=== PATIENT | female | born 2005 | race Caucasian/White ===

== ENCOUNTER 2024-10-01 18:27 | Emergency (ER) | payer OTHER, MEDICAID ==
[2024-10-01 19:06] VITALS: O2SAT 100
--- NOTE | 2024-10-01 19:48 | ERPHSYRPT ---
- History of Present Illness Time Seen by Provider: 10/01/24 19:46 Source: patient Exam Limitations: no limitations Patient Subjective Stated Complaint: Cough Triage Nursing Assessment: Patient ambulated back to ED and transferred self to bed. Patient A+O X 3. Patient's skin pink, warm and dry. Patient complains of cough for 2 weeks, but tested positive for Covid yesterday. Patient complains of productive cough with thick green sputum, bodyaches and headaches. Lungs clear a/p minor. Patient states she is 17 weeks . Physician History: The patient is a female who presents with congestion and a positive COVID-19 test. Symptoms began on September 20 with congestion, and she initially tested negative for COVID-19 on Wednesday at a [facility] facility. She experienced a fever of 102F on Wednesday but has not had any further fevers since then. She has a lack of appetite and vomits when attempting to eat or drink, although she was able to keep down [employer] this morning. She has been cautious with fluid int hollie due to fear of vomiting but managed to drink a little water. She is 17 weeks with her first . She experiences belly pain when coughing and has felt the baby move slightly. She has slight shortness of breath and chest pain associated with coughing. No swelling in her legs. She is currently taking Macrobid for a urinary tract infection (UTI) since Wednesday, with a prescribed duration of seven days. She has also taken Tylenol. Her cough is productive with mucus that is a color between dark and light green. Timing/Duration: week(s) (2) Cough Quality/Degree: moderate, productive cough Possible Cause: occasional episodes Modifying Factors: Improves With: activity, coughing, deep breath, exertion Associated Symptoms: fever, chills, cough, nasal congestion, nasal drainage, shortness of breath, No chest pain/soreness, No earache, No facial pain, No wheezing Allergies/Adverse Reactions: No Known Drug Allergies Allergy (Unverified 10/01/24 18:55) Hx Tetanus, Diphtheria Vaccination/Date Given: No Hx Influenza Vaccination/Date Given: No Hx Pneumococcal Vaccination/Date Given: No Immunizations Up to Date: Yes Travel Risk - International Travel Have you traveled outside of the country in past 3 weeks: No - Emerging Infectious Disease Are you exhibiting symptoms associated with any current EIDs: Yes Symptoms: Cough: New Onset, Headaches/Body Aches/ - Review of Systems All Other Systems: Reviewed and Negative - Past Medical History Pertinent Past Medical History: No Neurological History: No Pertinent History ENT History: No Pertinent History Cardiac History: No Pertinent History Respiratory History: No Pertinent History Endocrine Medical History: No Pertinent History Musculoskeletal History: No Pertinent History GI Medical History: No Pertinent History History: No Pertinent History Psycho-Social History: No Pertinent History Female Reproductive Disorders: No Pertinent History - Past Surgical History Past Surgical History: No Neuro Surgical History: No Pertinent History Cardiac: No Pertinent History Respiratory: No Pertinent History Gastrointestinal: No Pertinent History Genitourinary: No Pertinent History Musculoskeletal: No Pertinent History Female Surgical History: No Pertinent History - Female History Hx Last Menstrual Period: May Hx Now: Yes Gestational Age: 17 weeks - Social History Smoking Status: Never smoker Exposure to second hand smoke: No Drug Use: none - Social Determinants of Health Will the patient participate in the screening: Yes Do you worry about a steady place to live?: No Do you have any problems with any of the following?: No known problems In the past 12 months,have you had to go without utilities?: No Transportation Issues: No Has anyone in your support network made you feel unsafe?: No Have you or anyone in your house had to go without enough: No - Nursing Vital Signs Nursing Vital Signs: Initial Vital Signs Temperature 98.4 F 10/01/24 18:55 Respiratory Rate 18 10/01/24 18:55 O2 Sat by Pulse Oximetry 100 10/01/24 18:55 Pain Scale Pain Intensity 0 - Physical Exam General Appearance: no apparent distress, obese Ears, Nose, Throat Exam: normal ENT inspection, pharyngeal erythema Neck Exam: normal inspection, supple, full range of motion, lymphadenopathy Respiratory Exam: normal breath sounds, lungs clear, airway intact, No respiratory distress Cardiovascular Exam: regular rate/rhythm, normal heart sounds, capillary refill <2 sec, No edema Skin Exam: normal color, warm, dry, No rash SpO2 Interpretation: normal SpO2: 100 O2 Delivery: Room Air - Course Nursing assessment & vital signs reviewed: Yes Ordered Tests: Active Orders 24 hr Category Date Time Status IV Insertion STAT Care 10/01/24 19:49 Active CBC W DIFF Stat Lab 10/01/24 20:06 Completed CMP Stat Lab 10/01/24 20:06 Completed PROCALCITONIN Stat Lab 10/01/24 20:06 Completed UA W/RFX UR CULTURE Stat Lab 10/01/24 20:02 Completed Medication Summary Generic Name Dose Route Start Last Admin Trade Name Zain PRN Reason Stop Dose Admin Prednisone 20 mg 10/02/24 20:55 Prednisone 20 Mg Tablet PO 10/02/24 20:56 STAT ONE Discontinued Medications Generic Name Dose Route Start Last Admin Trade Name Zain PRN Reason Stop Dose Admin Sodium Chloride 1,000 mls @ 999 mls/hr 10/01/24 19:48 10/01/24 20:01 Sodium Chloride 0.9% 1000 Ml IV 10/01/24 20:48 999 mls/hr .Q1H1M STA Administration Sodium Chloride Confirm 10/01/24 20:00 Sodium Chloride 0.9% 1000 Ml Administered 10/01/24 20:01 Dose 1,000 mls @ ud .ROUTE .STK-MED ONE Lab/Rad Data: Laboratory Result Diagrams 10/01/24 20:06 10/01/24 20:06 Laboratory Results 10/01/24 10/01/24 10/01/24 Range/Units 20:06 20:06 20:06 WBC 7.1 (3.98-10.04) x10^3/uL RBC 4.23 (3.93-5.22) x10^6/uL Hgb 11.4 (11.2-15.7) g/dL Hct 34.3 (34.1-44.9) % MCV 81.1 (79.4-94.8) fL MCH 27.0 (25.6-32.2) pg MCHC 33.2 (32.2-35.5) g/dL RDW 14.5 H (11.7-14.4) % Plt Count 231 (182-369) x10^3/uL MPV 9.6 (9.4-12.3) fL Gran % 61.6 (34.0-71.1) % Immature Gran % (Auto) 0.3 (0.001-0.429) % Nucleat RBC Rel Count 0.0 (0.00-0.2) % Eos # (Auto) 0.17 (0.04-0.36) x10^3/uL Immature Gran # (Auto) 0.02 (0.001-0.031) x10^3u/L Absolute Lymphs (auto) 2.03 (1.18-3.74) x10^3/uL Absolute Monos (auto) 0.49 (0.24-0.86) x10^3/uL Absolute Nucleated RBC 0.00 (0.00-0.012) x10^3u/L Lymphocytes % 28.7 (19.3-51.7) % Monocytes % 6.9 (4.7-12.5) % Eosinophils % 2.4 (0.7-5.8) % Basophils % 0.1 (0.1-1.2) % Absolute Granulocytes 4.36 (1.56-6.13) x10^3/uL Basophils # 0.01 (0.01-0.08) x10^3/uL Sodium 138 (135-145) mmol/L Potassium 3.3 L (3.5-5.1) mmol/L Chloride 106 (98-107) mmol/L Carbon Dioxide 25 (22-30) mmol/L Anion Gap 10.7 (5-15) MEQ/L BUN 6 L (7-17) mg/dL Creatinine 0.59 (0.52-1.04) mg/dL Estimated GFR 132.2 ML/MIN Glucose 91 (74-106) mg/dL Calcium 9.2 (8.4-10.2) mg/dL Total Bilirubin 0.20 (0.2-1.3) mg/dL AST 22 (14-36) U/L ALT 23 (0-35) U/L Alkaline Phosphatase 74 (38-126) U/L Serum Total Protein 7.6 (6.3-8.2) g/dL Albumin 4.0 (3.5-5.0) g/dL Procalcitonin 0.049 (0.030-0.080) ng/mL Urine Color (Yellow) Urine Appearance (Clear) Urine pH (4.6-8.0) Ur Specific [place] (1.005-1.030) Urine Protein (Negative) Urine Glucose (UA) (Negative) mg/dL Urine Ketones (Negative) Urine Blood (Negative) Urine Nitrite (Negative) Urine Bilirubin (Negative) Urine Urobilinogen (0.2) mg/dL Ur Leukocyte Esterase (Negative) U Hyaline Cast (Auto) (0-2) /LPF Urine Microscopic RBC (0-5) /HPF Urine Microscopic WBC (0-5) /HPF Ur Epithelial Cells (None Seen) /HPF Urine Bacteria (None Seen) /HPF Urine Culture Reflexed (NO) 10/01/24 Range/Units 20:02 WBC (3.98-10.04) x10^3/uL RBC (3.93-5.22) x10^6/uL Hgb (11.2-15.7) g/dL Hct (34.1-44.9) % MCV (79.4-94.8) fL MCH (25.6-32.2) pg MCHC (32.2-35.5) g/dL RDW (11.7-14.4) % Plt Count (182-369) x10^3/uL MPV (9.4-12.3) fL Gran % (34.0-71.1) % Immature Gran % (Auto) (0.001-0.429) % Nucleat RBC Rel Count (0.00-0.2) % Eos # (Auto) (0.04-0.36) x10^3/uL Immature Gran # (Auto) (0.001-0.031) x10^3u/L Absolute Lymphs (auto) (1.18-3.74) x10^3/uL Absolute Monos (auto) (0.24-0.86) x10^3/uL Absolute Nucleated RBC (0.00-0.012) x10^3u/L Lymphocytes % (19.3-51.7) % Monocytes % (4.7-12.5) % Eosinophils % (0.7-5.8) % Basophils % (0.1-1.2) % Absolute Granulocytes (1.56-6.13) x10^3/uL Basophils # (0.01-0.08) x10^3/uL Sodium (135-145) mmol/L Potassium (3.5-5.1) mmol/L Chloride (98-107) mmol/L Carbon Dioxide (22-30) mmol/L Anion Gap (5-15) MEQ/L BUN (7-17) mg/dL Creatinine (0.52-1.04) mg/dL Estimated GFR ML/MIN Glucose (74-106) mg/dL Calcium (8.4-10.2) mg/dL Total Bilirubin (0.2-1.3) mg/dL AST (14-36) U/L ALT (0-35) U/L Alkaline Phosphatase (38-126) U/L Serum Total Protein (6.3-8.2) g/dL Albumin (3.5-5.0) g/dL Procalcitonin (0.030-0.080) ng/mL Urine Color Dark Yellow A (Yellow) Urine Appearance Cloudy A (Clear) Urine pH 7.0 (4.6-8.0) Ur Specific [place] 1.025 (1.005-1.030) Urine Protein Negative (Negative) Urine Glucose (UA) Negative (Negative) mg/dL Urine Ketones Negative (Negative) Urine Blood Negative (Negative) Urine Nitrite Negative (Negative) Urine Bilirubin Negative (Negative) Urine Urobilinogen 1.0 A (0.2) mg/dL Ur Leukocyte Esterase Trace A (Negative) U Hyaline Cast (Auto) NONE SEEN (0-2) /LPF Urine Microscopic RBC 3-5 (0-5) /HPF Urine Microscopic WBC 3-5 (0-5) /HPF Ur Epithelial Cells Few (None Seen) /HPF Urine Bacteria Few A (None Seen) /HPF Urine Culture Reflexed NO (NO) - Progress Progress: improved Air Movement: good Progress Note: 18-year-old 1 para 0 at 17 weeks gestation presents with upper respiratory infection with a positive COVID test at home. Patient is also been dealing with a urinary tract infection for which she is currently taking Macrobid. She denies any current urinary symptoms. She has been unable to keep much fluids or solids down over the last 3 days. She has a productive cough and some shortness of breath. CBC and CMP are within normal limits. Chest x-ray deferred due to and low concern for consolidation based off of physical exam findings. I discussed the case with her retort furnace helper Dr. Varner was okay with the use of prednisone for symptomatic treatment. Defer use of Paxlovid at this time. No need for antibiotic treatment as this is viral in nature. Encouraged maintain adequate hydration and use Tylenol for myalgias. Follow up next scheduled appointment. Blood Culture(s) Obtained: No Antibiotics given: No Discussed with : Mi Counseled pt/family regarding: lab results, diagnosis, need for follow-up Medical Desision Making - Diagnostic Testing Diagnostic test were ordered, analyzed, and reviewed by me: Yes Radiological Interpretation: Interpreted by me - Risk of complications The pt has a mod risk of morbidity or mortality based on: Need for prescription drug management - Departure Departure Disposition: Home Clinical Impression: COVID-19 affecting in second trimester Condition: Good Critical Care Time: No Referrals: RAFI REEDER, [employer] MACHINE OPERATOR [Primary Care Provider] - Follow up/PCP as directed Instructions: COVID-19 and ED Prescriptions: predniSONE [Prednisone] 20 mg PO BID 5 Days #10 tablet
[2024-10-01] MEDS ORDERED: Sodium Chloride 0.9% 1000 ML 1,000 ML ONE (20:00)
[2024-10-01] MEDS: Sodium Chloride 0.9% 1000 ML 1,000 ML IV STA (20:01)
[2024-10-01 20:09] VITALS: TEMP 96.6
[2024-10-01 20:09] LABS: Absolute Neutrophil Ct (ANC) 4.36 x10^3/uL (1.56-6.13); BASOPHIL % 0.1 % (0.1-1.2); Basophil (Absolute #) 0.01 x10^3/uL (0.01-0.08); Eosinophil % 2.4 % (0.7-5.8); Eosinophil (Absolute #) 0.17 x10^3/uL (0.04-0.36); Hematocrit 34.3 % (34.1-44.9); Hemoglobin 11.4 g/dL (11.2-15.7); IMMATURE GRAN # 0.02 x10^3u/L (0.001-0.031); IMMATURE GRAN % 0.3 % (0.001-0.429); Lymphocyte (Absolute #) 2.03 x10^3/uL (1.18-3.74); Lymphocytes % 28.7 % (19.3-51.7); Mean Cell Volume 81.1 fL (79.4-94.8); Mean Corpuscular Hgb Concent. 33.2 g/dL (32.2-35.5); Mean Platelet Volume 9.6 fL (9.4-12.3); Monocyte (Absolute #) 0.49 x10^3/uL (0.24-0.86); Monocytes % 6.9 % (4.7-12.5); Neutrophil % 61.6 % (34.0-71.1); Platelet Count 231 x10^3/uL (182-369); Red Blood Count 4.23 x10^6/uL (3.93-5.22); Red Cell Distribution Width 14.5 % (11.7-14.4); White Blood Count 7.1 x10^3/uL (3.98-10.04)
[2024-10-01 20:27] LABS: ANION GAP 10.7 MEQ/L (5-15); BILIRUBIN,TOTAL 0.2 mg/dL (0.2-1.3); Calcium 9.2 mg/dL (8.4-10.2); Creatinine 1 0.59 mg/dL (0.52-1.04); EST GLOMERULAR FILTRATION RATE 132.2 ML/MIN; Potassium 3.3 mmol/L (3.5-5.1); Total Protein 7.6 g/dL (6.3-8.2)
[2024-10-01 20:43] LABS: Appearance Cloudy (Clear); Bacteria Few /HPF (None Seen); Bilirubin Negative (Negative); Blood Negative (Negative); Epithelial Cells Few /HPF (None Seen); Glucose, Urine Negative (Negative); Hyaline Casts NONE SEEN /LPF (0-2); Ketones Negative (Negative); Leukocyte Esterase Trace (Negative); Nitrite Negative (Negative); Protein,Urine Dip Negative (Negative); Specific Gravity 1.025 (1.005-1.030)
[2024-10-01] MEDS ORDERED: DELTASONE 20 MG ONE (21:12)
[2024-10-01] MEDS: DELTASONE 20 MG PO ONE (21:13)
[2024-10-01 21:14] VITALS: BP 103/51; PULSE 85; RESP 18
== END 2024-10-01 21:23 | disposition home or self-care (01) ==
LOC: ED 18:27
DX: U07.1 COVID-19 (principal); R05.9 Cough, unspecified; Z3A.17 17 weeks gestation of pregnancy; O98.512 Other viral diseases complicating pregnancy, second trimester
CPT/HCPCS: 36415; 80053; 81001; 84145; 85025; 99284; A9270-GY

== ENCOUNTER 2025-01-29 16:37 | Observation (INO) | payer OTHER ==
[2025-01-29 17:30] VITALS: TEMP 98.8
[2025-01-29 17:37] LABS: Hematocrit 37.2 % (34.1-44.9); Hemoglobin 12.1 g/dL (11.2-15.7); Mean Cell Volume 81.9 fL (79.4-94.8); Mean Corpuscular Hemoglobin 26.7 pg (25.6-32.2); Mean Corpuscular Hgb Concent. 32.5 g/dL (32.2-35.5); Mean Platelet Volume 10.1 fL (9.4-12.3); Platelet Count 236 x10^3/uL (182-369); Red Blood Count 4.54 x10^6/uL (3.93-5.22); Red Cell Distribution Width 13.2 % (11.7-14.4); White Blood Count 7.9 x10^3/uL (3.98-10.04)
[2025-01-29 17:53] LABS: ALBUMIN 3.8 g/dL (3.5-5.0); ANION GAP 12.5 MEQ/L (5-15); BILIRUBIN,TOTAL 0.3 mg/dL (0.2-1.3); Calcium 8.7 mg/dL (8.4-10.2); Creatinine 1 0.72 mg/dL (0.52-1.04); EST GLOMERULAR FILTRATION RATE 121.9 ML/MIN; Potassium 3.8 mmol/L (3.5-5.1)
[2025-01-29 18:36] LABS: Appearance Clear (Clear); Bacteria None Seen /HPF (None Seen); Bilirubin Negative (Negative); Blood Negative (Negative); Epithelial Cells Rare /HPF (None Seen); Glucose, Urine Negative (Negative); Hyaline Casts NONE SEEN /LPF (0-2); Ketones Trace (Negative); Leukocyte Esterase Small (Negative); Nitrite Negative (Negative); Ph 6.5 (4.6-8.0); Protein,Urine Dip Trace (Negative); RBC 0-2 /HPF (0-5)
[2025-01-29 18:44] LABS: Creatinine, Urine Random 145.4 mg/dl; Protein Creatinine Ratio, Ran. 0.06 mg/mg (0.0-0.15)
[2025-01-29 18:47] LABS: Amphetamine,Urine NEGATIVE (NEGATIVE); Barbiturate,Urine NEGATIVE (NEGATIVE); Benzodiazepine,Urine NEGATIVE (NEGATIVE); Cocaine,Urine NEGATIVE (NEGATIVE); Methadone,Urine NEGATIVE (NEGATIVE); Opiate,Urine NEGATIVE (NEGATIVE); PCP,Urine NEGATIVE (NEGATIVE); THC,Urine NEGATIVE (NEGATIVE)
[2025-01-29 19:26] VITALS: BP 134/77; PULSE 75; RESP 18; O2SAT 100
== END 2025-01-29 19:25 | disposition home or self-care (01) ==
LOC: OB 16:37
PROVIDERS: ADMIT Obstetrics & Gynecology; ATTEND Obstetrics & Gynecology
DX: Z34.03 Encounter for supervision of normal first pregnancy, third trimester (principal); Z3A.34 34 weeks gestation of pregnancy
CPT/HCPCS: 36415; 80053; 80307; 81001; 82570; 83615; 84156; 84550; 85027; 87086; G0378; G0379

== ENCOUNTER 2025-02-07 15:13 | Observation (INO) | payer OTHER ==
[2025-02-07 15:40] LABS: Absolute Neutrophil Ct (ANC) 5.55 x10^3/uL (1.56-6.13); BASOPHIL % 0.3 % (0.1-1.2); Basophil (Absolute #) 0.02 x10^3/uL (0.01-0.08); Eosinophil % 0.3 % (0.7-5.8); Eosinophil (Absolute #) 0.02 x10^3/uL (0.04-0.36); Hematocrit 33.2 % (34.1-44.9); Hemoglobin 10.9 g/dL (11.2-15.7); IMMATURE GRAN # 0.03 x10^3u/L (0.001-0.031); IMMATURE GRAN % 0.4 % (0.001-0.429); Lymphocyte (Absolute #) 1.52 x10^3/uL (1.18-3.74); Mean Cell Volume 81.8 fL (79.4-94.8); Mean Corpuscular Hemoglobin 26.8 pg (25.6-32.2); Mean Corpuscular Hgb Concent. 32.8 g/dL (32.2-35.5); Mean Platelet Volume 10.2 fL (9.4-12.3); Monocyte (Absolute #) 0.46 x10^3/uL (0.24-0.86); Monocytes % 6.1 % (4.7-12.5); Neutrophil % 72.9 % (34.0-71.1); Platelet Count 218 x10^3/uL (182-369); Red Blood Count 4.06 x10^6/uL (3.93-5.22); White Blood Count 7.6 x10^3/uL (3.98-10.04)
[2025-02-07 15:54] LABS: ALBUMIN 3.4 g/dL (3.5-5.0); ANION GAP 11.6 MEQ/L (5-15); BILIRUBIN,TOTAL 0.3 mg/dL (0.2-1.3); Calcium 8.5 mg/dL (8.4-10.2); Creatinine 1 0.84 mg/dL (0.52-1.04); EST GLOMERULAR FILTRATION RATE 101.3 ML/MIN; Total Protein 6.3 g/dL (6.3-8.2); Uric Acid 8.3 mg/dL (2.6-6.0)
[2025-02-07 16:32] LABS: Creatinine, Urine Random 222.4 mg/dl; Protein Creatinine Ratio, Ran. 0.04 mg/mg (0.0-0.15)
[2025-02-07 17:25] VITALS: PULSE 81; RESP 16; TEMP 97.7; O2SAT 99
[2025-02-07 17:30] VITALS: BP 138/82
== END 2025-02-07 17:20 | disposition home or self-care (01) ==
LOC: OB.NST 15:13 → OB 15:14 → UNDOADMOB 17:16 → OB 17:16 → UNDODISOB 17:20
PROVIDERS: ADMIT Obstetrics & Gynecology; ATTEND Obstetrics & Gynecology
DX: Z34.03 Encounter for supervision of normal first pregnancy, third trimester (principal); Z3A.35 35 weeks gestation of pregnancy
CPT/HCPCS: 36415; 59025; 80053; 82570; 83615; 84156; 84550; 85025; 99213; G0378; G0379

== ENCOUNTER 2025-02-20 07:09 | Inpatient (IN) | payer OTHER ==
[2025-02-20] MEDS ORDERED: Zofran 4 MG/2 ML VIAL IV PRN (07:48)
[2025-02-20] MEDS ORDERED: STADOL 2 MG IV PRN ×2 (07:48→21:56)
[2025-02-20] MEDS ORDERED: TYLENOL EXTRA STRENGTH 500 MG PO PRN (07:48)
[2025-02-20] MEDS ORDERED: PITOCIN 30 UNITS/ LR 500 ML 30 UNITS/500 ML PLAST..BAG IV SCH (08:00)
[2025-02-20 08:54] LABS: Absolute Neutrophil Ct (ANC) 5.37 x10^3/uL (1.56-6.13); BASOPHIL % 0.3 % (0.1-1.2); Basophil (Absolute #) 0.02 x10^3/uL (0.01-0.08); Eosinophil % 0.3 % (0.7-5.8); Eosinophil (Absolute #) 0.02 x10^3/uL (0.04-0.36); Hematocrit 33.9 % (34.1-44.9); Hemoglobin 11.5 g/dL (11.2-15.7); IMMATURE GRAN # 0.03 x10^3u/L (0.001-0.031); IMMATURE GRAN % 0.4 % (0.001-0.429); Lymphocytes % 21.4 % (19.3-51.7); Mean Cell Volume 79.6 fL (79.4-94.8); Mean Corpuscular Hgb Concent. 33.9 g/dL (32.2-35.5); Mean Platelet Volume 10.8 fL (9.4-12.3); Monocyte (Absolute #) 0.44 x10^3/uL (0.24-0.86); Monocytes % 5.9 % (4.7-12.5); Neutrophil % 71.7 % (34.0-71.1); Platelet Count 204 x10^3/uL (182-369); Red Blood Count 4.26 x10^6/uL (3.93-5.22); Red Cell Distribution Width 13.3 % (11.7-14.4); White Blood Count 7.5 x10^3/uL (3.98-10.04)
[2025-02-20 09:07] LABS: ALBUMIN 3.3 g/dL (3.5-5.0); ANION GAP 15.1 MEQ/L (5-15); BILIRUBIN,TOTAL 0.3 mg/dL (0.2-1.3); Calcium 8.7 mg/dL (8.4-10.2); Creatinine 1 0.79 mg/dL (0.52-1.04); EST GLOMERULAR FILTRATION RATE 109.1 ML/MIN; Potassium 3.6 mmol/L (3.5-5.1); Total Protein 6.1 g/dL (6.3-8.2); Uric Acid 9.4 mg/dL (2.6-6.0)
[2025-02-20 09:18] LABS: Creatinine, Urine Random 284.2 mg/dl; Protein Creatinine Ratio, Ran. 0.46 mg/mg (0.0-0.15)
[2025-02-20 09:27] LABS: Amphetamine,Urine NEGATIVE (NEGATIVE); Barbiturate,Urine NEGATIVE (NEGATIVE); Benzodiazepine,Urine NEGATIVE (NEGATIVE); Cocaine,Urine NEGATIVE (NEGATIVE); Methadone,Urine NEGATIVE (NEGATIVE); Opiate,Urine NEGATIVE (NEGATIVE); PCP,Urine NEGATIVE (NEGATIVE); THC,Urine NEGATIVE (NEGATIVE)
[2025-02-20 09:38] LABS: ABO TYPING O; Antibody Screen NEGATIVE (NEGATIVE); RH TYPING POSITIVE
[2025-02-21] MEDS: CYTOTEC PO ONE (05:25)
[2025-02-21 08:02] LABS: RPR Non Reactive (Non Reactive)
[2025-02-21] MEDS: PITOCIN 30 UNITS/ LR 500 ML 30 UNITS/500 ML PLAST..BAG IV SCH (08:18)
[2025-02-21] MEDS: Lactated Ringers 1,000 ML IV SCH (08:18)
[2025-02-21] MEDS: Nubain 10 MG/ML IV PRN (08:43)
[2025-02-21] MEDS ORDERED: Dermoplast Spray TP PRN (12:00)
[2025-02-21] MEDS ORDERED: TUCKS TP PRN (12:00)
[2025-02-21] MEDS ORDERED: Anucort-HC SUPPOSITORY PR PRN (12:00)
[2025-02-21] MEDS ORDERED: CORTISONE 1% CREAM TP PRN (12:00)
[2025-02-21] MEDS ORDERED: MOTRIN 400 MG PO PRN (12:00)
[2025-02-21] MEDS ORDERED: Ambien 10 MG PO PRN (12:00)
[2025-02-21] MEDS ORDERED: Mylicon 80MG PO PRN (12:00)
[2025-02-21] MEDS ORDERED: Dulcolax 10 MG SUPP PR PRN (12:00)
[2025-02-21] MEDS ORDERED: LANSINOH 40 GM TOP PRN (12:00)
[2025-02-21] MEDS ORDERED: Ephedrine Sulfate 50 MG/ML IV PRN (12:14)
[2025-02-21] MEDS ORDERED: Lactated Ringers 1,000 ML IV ONE ×2 (12:14→15:00)
[2025-02-21] MEDS: FENTANYL 2 MCG-BUPIV 0.125%-NS 250 ML Epidur 250 ML EPIDURAL SCH (12:30)
[2025-02-21] MEDS ORDERED: Sodium Chloride 0.9% 1000 ML 1,000 ML ONE (14:31)
[2025-02-21] MEDS ORDERED: CEFAZOLIN 2 GM/100 ML NaCl 2 GM/100 ML IVPB IV ONE (14:51)
[2025-02-21] MEDS ORDERED: Pitocin 10 UNITS/ML ONE (14:54)
[2025-02-21] MEDS ORDERED: Marcaine Mpf 0.5% Vial 30 Ml ONE (14:55)
[2025-02-21] MEDS ORDERED: OFIRMEV 100 ML IV ONE (14:55)
[2025-02-21] MEDS ORDERED: EXPAREL 133 MG/10 ML VIAL IJ ONE (14:55)
[2025-02-21] MEDS ORDERED: CEFAZOLIN 2 GM/100 ML NaCl 2 GM/100 ML IVPB IV SCH ×2 (15:00→15:15)
[2025-02-21] MEDS: Sodium Chloride 0.9% 1000 ML 1,000 ML IV INFUS SCH (15:00)
[2025-02-21] MEDS ORDERED: XYLOCAINE 2%/Epi 1:200000 20ML VIAL MPF ONE (15:01)
[2025-02-21] MEDS ORDERED: SUBLIMAZE 100 MCG/2 ML ONE (15:02)
[2025-02-21] MEDS ORDERED: Astramorph-Pf 5 MG/10 ML ONE (15:28)
[2025-02-21] MEDS ORDERED: PHENYLEPHRINE HCL ONE (15:28)
[2025-02-21] MEDS ORDERED: Ephedrine Sulfate 50 MG/ML ONE (15:41)
[2025-02-21] MEDS: Dextrose 5%-Lr IV Solution 1000 ML 1,000 ML IV SCH (17:16)
[2025-02-21 17:20] LABS: Appearance Cloudy (Clear); Bacteria None Seen /HPF (None Seen); Bilirubin Negative (Negative); Blood Large (Negative); Epithelial Cells Few /HPF (None Seen); Glucose, Urine Negative (Negative); Ketones 15 (Negative); Leukocyte Esterase Moderate (Negative); Nitrite Negative (Negative); Protein,Urine Dip 100 (Negative); RBC >100 /HPF (0-5); Specific Gravity 1.015 (1.005-1.030); Urobilinogen 0.2 mg/dL (0.2); WBC 51-100 /HPF (0-5)
[2025-02-21] MEDS: Docusate Sodium 100 MG PO SCH (22:44)
[2025-02-21] MEDS: CEFAZOLIN 2 GM/100 ML NaCl 2 GM/100 ML IVPB IV SCH (22:44)
[2025-02-22 06:24] LABS: Absolute Neutrophil Ct (ANC) 7.66 x10^3/uL (1.56-6.13); BASOPHIL % 0.1 % (0.1-1.2); Basophil (Absolute #) 0.01 x10^3/uL (0.01-0.08); Eosinophil % 0.1 % (0.7-5.8); Eosinophil (Absolute #) 0.01 x10^3/uL (0.04-0.36); Hematocrit 30.3 % (34.1-44.9); Hemoglobin 9.6 g/dL (11.2-15.7); IMMATURE GRAN # 0.04 x10^3u/L (0.001-0.031); IMMATURE GRAN % 0.4 % (0.001-0.429); Lymphocyte (Absolute #) 1.86 x10^3/uL (1.18-3.74); Lymphocytes % 17.8 % (19.3-51.7); Mean Cell Volume 82.8 fL (79.4-94.8); Mean Corpuscular Hemoglobin 26.2 pg (25.6-32.2); Mean Corpuscular Hgb Concent. 31.7 g/dL (32.2-35.5); Mean Platelet Volume 10.5 fL (9.4-12.3); Monocyte (Absolute #) 0.85 x10^3/uL (0.24-0.86); Monocytes % 8.1 % (4.7-12.5); Neutrophil % 73.5 % (34.0-71.1); Platelet Count 168 x10^3/uL (182-369); Red Blood Count 3.66 x10^6/uL (3.93-5.22); Red Cell Distribution Width 13.7 % (11.7-14.4); White Blood Count 10.4 x10^3/uL (3.98-10.04)
[2025-02-22] MEDS ORDERED: CEFAZOLIN 2 GM/100 ML NaCl 2 GM/100 ML IVPB IV ONE (06:53)
--- NOTE | 2025-02-22 07:42 | PCM.BN ---
Brief Admission Note - Admission Note Brief Admisson Note: Patient admitted @ 02/21/25 07:09 to OB. Medication List reviewed and reconciled. pt is a 19 yo iup at 37 2/7 wks gestation with current hx of preeclampsia diagnosed with elevated bp in office with diastolic in the 90's and noted having elevated prot/cr at 0.43 with rising uric acid to 9.3 denies mc or visual disturbance and is here for induction secondary to preeclampsia. vss afebrile abd; soft gravid uterus 36 wks size pelvic; /50/-3/vtx/intact a/p iup 37 2/7 wks gestation with preeclampsia will admit for induction with vaginal cytotec pih labs
--- NOTE | 2025-02-22 07:45 | PCM.NOTE ---
Date and Time: 02/22/25 0742 Subjective Assessment: pod 1 sp csection pt resting in bed and doing well able to tolerate diet. vss afebrile abd; soft incision c/d/intact uterus; firm lochia; mild hgb; 9.6 a/p sp csection pod 1 doing well will encourage ambulation today anticipate discharge home tomorrow Objective Data Vital Signs: Vital Signs - 24 hr Temp Pulse Resp BP BP Pulse Ox 02/22/25 07:00 98 02/22/25 06:00 100 02/22/25 05:00 97 02/22/25 04:00 98 02/22/25 03:00 99 02/22/25 02:00 98.3 F 91 H 16 104/60 99 02/22/25 01:00 98 02/22/25 00:00 97 02/21/25 23:00 98 02/21/25 22:00 96 02/21/25 21:00 99 02/21/25 20:00 98.5 F 103 H 20 129/67 99 02/21/25 19:00 100 02/21/25 18:30 87 16 130/72 100 02/21/25 18:00 93 H 18 138/79 100 02/21/25 17:30 96 H 16 122/69 100 02/21/25 17:15 86 18 119/67 100 02/21/25 17:00 102 H 18 100 02/21/25 16:45 102 H 16 113/53 100 02/21/25 16:30 106 H 16 131/72 100 02/21/25 13:00 89 18 128/59 100 02/21/25 11:00 77 18 139/68 100 02/21/25 10:45 81 18 158/91 100 02/21/25 10:30 67 18 127/74 98 02/21/25 10:15 73 18 135/77 100 02/21/25 10:00 72 18 123/70 97 02/21/25 09:00 68 18 123/70 100 02/21/25 08:00 18 Pain Assessment - Last Documented Pain Intensity [Lower] 5 Pain Intensity 0 Pain Scale Used 0-10 Pain Scale Intake and Output: Intake & Output 02/19/25 02/20/25 02/21/25 02/22/25 11:59 11:59 11:59 11:59 Intake Total 200 1100 Output Total 575 Balance 200 1100 -575 Weight 131.995 kg Lab Results: Lab Results-Last 24 Hours 02/20/25 02/21/25 02/22/25 Range/Units 08:44 15:13 06:15 WBC 10.4 H (3.98-10.04) x10^3/uL RBC 3.66 L (3.93-5.22) x10^6/uL Hgb 9.6 L (11.2-15.7) g/dL Hct 30.3 L (34.1-44.9) % MCV 82.8 (79.4-94.8) fL MCH 26.2 (25.6-32.2) pg MCHC 31.7 L (32.2-35.5) g/dL RDW 13.7 (11.7-14.4) % Plt Count 168 L (182-369) x10^3/uL MPV 10.5 (9.4-12.3) fL Gran % 73.5 H (34.0-71.1) % Immature Gran % (Auto) 0.4 (0.001-0.429) % Nucleat RBC Rel Count 0.0 (0.00-0.2) % Eos # (Auto) 0.01 L (0.04-0.36) x10^3/uL Immature Gran # (Auto) 0.04 H (0.001-0.031) x10^3u/L Absolute Lymphs (auto) 1.86 (1.18-3.74) x10^3/uL Absolute Monos (auto) 0.85 (0.24-0.86) x10^3/uL Absolute Nucleated RBC 0.00 (0.00-0.012) x10^3u/L Lymphocytes % 17.8 L (19.3-51.7) % Monocytes % 8.1 (4.7-12.5) % Eosinophils % 0.1 L (0.7-5.8) % Basophils % 0.1 (0.1-1.2) % Absolute Granulocytes 7.66 H (1.56-6.13) x10^3/uL Basophils # 0.01 (0.01-0.08) x10^3/uL Urine Color Red A (Yellow) Urine Appearance Cloudy A (Clear) Urine pH 7.0 (4.6-8.0) Ur Specific [place] 1.015 (1.005-1.030) Urine Protein 100 A (Negative) Urine Glucose (UA) Negative (Negative) mg/dL Urine Ketones 15 A (Negative) Urine Blood Large A (Negative) Urine Nitrite Negative (Negative) Urine Bilirubin Negative (Negative) Urine Urobilinogen 0.2 (0.2) mg/dL Ur Leukocyte Esterase Moderate A (Negative) U Hyaline Cast (Auto) 3-5 A (0-2) /LPF Urine Microscopic RBC >100 A (0-5) /HPF Urine Microscopic WBC 51-100 A (0-5) /HPF Ur Epithelial Cells Few (None Seen) /HPF Urine Bacteria None Seen (None Seen) /HPF RPR Non Reactive (Non Reactive) Medications: Medications Generic Name Dose Route Start Last Admin Trade Name Freq PRN Reason Stop Dose Admin Acetaminophen 1,000 mg 02/20/25 07:48 Acetaminophen 500 Mg Tablet PO 03/22/25 07:47 Q4H PRN PRN HEADACHE/MILD PAIN/ FEVER Benzocaine 1 gm 02/21/25 12:00 Benzocaine/Lanolin/Aloe Vera 85 Gm Can TP 03/23/25 11:59 UD PRN as needed Bisacodyl 10 mg 02/21/25 12:00 Bisacodyl 10 Mg Supp.Rect RI 03/23/25 11:59 PRN PRN CONSTIPATION Butorphanol Tartrate 1 - 2 mg 02/20/25 21:56 Butorphanol Tartrate 2 Mg/Ml Vial IV 03/22/25 21:54 Q3H PRN PRN MODERATE PAIN Diphtheria/Tetanus/Acell Pertussis 0.5 ml 02/22/25 09:00 Tdap --Diph,Pertuss(Acell),Tet Vac/Pf 0.5 Ml Vial IM 02/22/25 09:01 .ONCE ONE Docusate Sodium 100 mg 02/21/25 12:00 02/21/25 22:44 Docusate Sodium 100 Mg Capsule PO 03/23/25 11:59 100 mg BID MERVAT Administration Emollient Ointment 0 gm 02/21/25 12:00 Lansinoh 40 Gm Tube TOP 03/23/25 11:59 PRN PRN PAIN Enoxaparin Sodium 40 mg 05/01/25 10:00 Enoxaparin Sodium 40 Mg/0.4 Ml Syringe SQ 02/22/25 10:01 1XONLY ONE Ephedrine Sulfate 10 mg 02/21/25 12:14 Ephedrine Sulfate 50 Mg/Ml IV 03/23/25 12:13 PRN PRN SBP<100 Hydrocortisone 0.5 gm 02/21/25 12:00 Hydrocortisone 1% Cream 28 Gm Tube TP 03/23/25 11:59 PRN PRN ITCHING Hydrocortisone Acetate 25 mg 02/21/25 12:00 Hydrocortisone Acetate 25 Mg Supp.Rect RI 03/23/25 11:59 PRN PRN HEMORRHOIDS Oxytocin/Lactated Ringer's 30 units in 500 mls @ 5 mls/hr 02/20/25 08:00 Pitocin 30 Units/ Lr 500 Ml IV 03/22/25 07:59 .Q24H MERVAT Oxytocin/Lactated Ringer's 30 units in 500 mls @ 0 mls/hr 02/21/25 08:30 02/21/25 08:18 Pitocin 30 Units/ Lr 500 Ml IV 03/23/25 08:29 2 mls/hr .Q0M MERVAT Administration Protocol Titrate FENTANYL/BUPIVACAINE/NS/PF 250 mls @ 0 mls/hr 02/21/25 12:15 02/21/25 12:30 Fentanyl 2 Mcg-Bupiv 0.125%-Ns 250 Ml Epidur EPIDURAL 03/23/25 12:14 10 mls/hr .Q0M MERVAT Administration Protocol Titrate Dextrose/Lactated Ringer's 1,000 mls @ 125 mls/hr 02/21/25 17:30 02/21/25 17:16 Dextrose 5%-Lr Iv Solution 1000 Ml IV 03/23/25 17:29 125 mls/hr .Q8H MERVAT Administration Ibuprofen 800 mg 02/21/25 12:00 Ibuprofen 400 Mg Tablet PO 03/23/25 11:59 Q6H PRN PRN MODERATE PAIN Nalbuphine HCl 5 - 10 mg 02/20/25 07:48 02/21/25 08:43 Nalbuphine Hcl 10 Mg/Ml Ampul IV 03/22/25 07:47 5 mg Q4H PRN PRN Administration PAIN Ondansetron HCl 4 mg 02/20/25 07:48 Ondansetron Hcl 4 Mg/2 Ml Vial IV 03/22/25 07:47 Q4H PRN PRN NAUSEA/VOMITING Polysaccharide Iron Complex 150 mg 02/21/25 12:00 Iron Polysaccharides Complex 150 Mg Capsule PO 03/23/25 11:59 DAILY MERVAT Simethicone 80 mg 02/21/25 12:00 Simethicone 80 Mg Tab.Chew PO 03/23/25 11:59 QID PRN PRN INDIGESTION Witch Josie 1 pad 02/21/25 12:00 Witch Josie 1 Pad Med..Pad TP 03/23/25 11:59 PRN PRN ITCHING Zolpidem Tartrate 10 mg 02/21/25 12:00 Zolpidem Tartrate 10 Mg Tablet PO 03/23/25 11:59 HS PRN PRN INSOMNIA Discontinued Medications Generic Name Dose Route Start Last Admin Trade Name Freq PRN Reason Stop Dose Admin Bupivacaine HCl Confirm 02/21/25 14:55 Bupivacaine Hcl/Pf 150 Mg/30 Ml Vial Administered 02/21/25 14:56 Dose 150 mg .ROUTE .STK-MED ONE Bupivacaine Liposome Confirm 02/21/25 14:55 Bupivacaine Liposome/Pf 133 Mg/10 Ml Administered 02/21/25 14:56 Dose 266 mg IJ .STK-MED ONE Butorphanol Tartrate 1 mg 02/20/25 07:48 Butorphanol Tartrate 2 Mg/Ml Vial IV 03/22/25 07:47 Q4H PRN PRN MODERATE PAIN Ephedrine Sulfate Confirm 02/21/25 15:41 Ephedrine Sulfate 50 Mg/Ml Administered 02/21/25 15:42 Dose 50 mg .ROUTE .STK-MED ONE Fentanyl Citrate Confirm 02/21/25 15:02 Fentanyl Citrate 100 Mcg/2 Ml* Vial Administered 02/21/25 15:03 Dose 100 mcg .ROUTE .STK-MED ONE Lactated Ringer's 1,000 mls @ 125 mls/hr 02/20/25 08:00 02/21/25 13:42 Lactated Ringers IV 03/22/25 07:59 125 mls/hr .Q8H MERVAT Administration Lactated Ringer's 1,000 mls @ 999 mls/hr 02/21/25 12:14 Lactated Ringers IV 02/21/25 13:14 .Q1H1M ONE Sodium Chloride Confirm 02/21/25 14:31 Sodium Chloride 0.9% 1000 Ml Administered 02/21/25 14:32 Dose 1,000 mls @ ud .ROUTE .STK-MED ONE Cefazolin Sodium Confirm 02/21/25 14:51 Cefazolin 2 Gm/100 Ml Nacl Administered 02/21/25 14:52 Dose 2 gm in 100 mls @ ud IV .STK-MED ONE Acetaminophen Confirm 02/21/25 14:55 Ofirmev Administered 02/21/25 14:56 Dose 100 mls @ ud IV .STK-MED ONE Lactated Ringer's Confirm 02/21/25 15:00 Lactated Ringers Administered 02/21/25 15:01 Dose 1,000 mls @ ud IV .STK-MED ONE Cefazolin Sodium 2 gm in 100 mls @ 200 mls/hr 02/21/25 23:00 02/22/25 06:54 Cefazolin 2 Gm/100 Ml Nacl IV 03/23/25 22:59 200 mls/hr Q8HT MERVAT Administration Cefazolin Sodium Confirm 02/22/25 06:53 Cefazolin 2 Gm/100 Ml Nacl Administered 02/22/25 06:54 Dose 2 gm in 100 mls @ ud IV .STK-MED ONE Lidocaine/Epinephrine Confirm 02/21/25 15:01 Lidocaine Hcl/Epinephrine 2% 20 Ml Vial Mpf Administered 02/21/25 15:02 Dose 20 ml .ROUTE .STK-MED ONE Misoprostol 25 mcg 02/20/25 08:00 02/21/25 01:30 Misoprostol 25 Mcg ("4") Tab INTRAVAGIN 03/22/25 07:59 25 mcg Q4H PRN PRN Administration as ordered Misoprostol 20 mcg 02/21/25 05:15 02/21/25 05:25 Misoprostol 100 Mcg Tablet PO 02/21/25 05:16 20 mcg ONCE ONE Administration Morphine Sulfate Confirm 02/21/25 15:28 Morphine Sulfate 5 Mg/10 Ml Pf Ampul Administered 02/21/25 15:29 Dose 5 mg .ROUTE .STK-MED ONE Oxytocin Confirm 02/21/25 14:54 Oxytocin 10 Units/Ml 10 Units/Ml Vial Administered 02/21/25 14:55 Dose 20 units .ROUTE .STK-MED ONE Phenylephrine HCl Confirm 02/21/25 15:28 Phenylephrine 10 Mg/Ml Vial Administered 02/21/25 15:29 Dose 10 mg .ROUTE .STK-MED ONE Multi-Disciplinary Progress Notes: Multi-Disciplinary Progress Notes 02/21/25 15:44 Respiratory Note by Chelsea Farrell Stand by for . No respiratory intervention needed at this time. Initialized on 02/21/25 15:44 - END OF NOTE Assessment/Plan (1) Preeclampsia Current Visit: Yes Status: Acute Code(s): O14.90 - UNSPECIFIED PRE- ECLAMPSIA, UNSPECIFIED TRIMESTER (2) delivery delivered Current Visit: Yes Status: Acute Code(s): O82 - ENCOUNTER FOR DELIVERY WITHOUT INDICATION (3) Non-reassuring heart rate, delivered, current hospitalization Current Visit: Yes Status: Acute Code(s): O76 - ABNLT IN HEART RATE AND RHYTHM COMP LABOR AND DELIVERY
[2025-02-22] MEDS: FERREX 150 PO SCH (07:59)
[2025-02-22] MEDS: ENOXAPARIN SODIUM SQ ONE (10:40)
[2025-02-22 18:03] VITALS: O2SAT 99
--- NOTE | 2025-02-23 07:12 | PCM.NOTE ---
Date and Time: 02/23/25710 Subjective Assessment: pod 2 sp csection pt resting in bed and doing well able to ambulate and tolerate diet vss afebrile abd; soft incision c/d/intact uterus; firm lochia; mild a/p sp csection pod 2 secondary to nonreasurring heart rate; preeclampsia pt stable for discharge today should fu in office in next week Objective Data Vital Signs: Vital Signs - 24 hr Temp Pulse Resp BP Pulse Ox 02/23/25 06:00 98.1 F 82 16 131/73 99 02/22/25 20:00 98.6 F 94 H 16 125/76 99 02/22/25 14:00 98.8 F 104 H 16 124/68 99 02/22/25 13:00 98 02/22/25 12:00 98 02/22/25 11:00 98 02/22/25 10:00 98 02/22/25 09:00 98 02/22/25 08:00 98.1 F 90 16 124/83 98 02/22/25 07:58 98 Pain Assessment - Last Documented Pain Intensity [Lower] 5 Pain Intensity 0 Pain Scale Used 0-10 Pain Scale Intake and Output: Intake & Output 02/20/25 02/21/25 02/22/25 02/23/25 11:59 11:59 11:59 11:59 Intake Total 200 1100 300 Output Total 1025 Balance 200 1100 -1025 300 Weight 131.995 kg Medications: Medications Generic Name Dose Route Start Last Admin Trade Name Freq PRN Reason Stop Dose Admin Acetaminophen 1,000 mg 02/20/25 07:48 Acetaminophen 500 Mg Tablet PO 03/22/25 07:47 Q4H PRN PRN HEADACHE/MILD PAIN/ FEVER Benzocaine 1 gm 02/21/25 12:00 Benzocaine/Lanolin/Aloe Vera 85 Gm Can TP 03/23/25 11:59 UD PRN as needed Bisacodyl 10 mg 02/21/25 12:00 Bisacodyl 10 Mg Supp.Rect IN 03/23/25 11:59 PRN PRN CONSTIPATION Docusate Sodium 100 mg 02/21/25 12:00 02/22/25 22:15 Docusate Sodium 100 Mg Capsule PO 03/23/25 11:59 100 mg BID MERVAT Administration Emollient Ointment 0 gm 02/21/25 12:00 Lansinoh 40 Gm Tube TOP 03/23/25 11:59 PRN PRN PAIN Hydrocortisone 0.5 gm 02/21/25 12:00 Hydrocortisone 1% Cream 28 Gm Tube TP 03/23/25 11:59 PRN PRN ITCHING Hydrocortisone Acetate 25 mg 02/21/25 12:00 Hydrocortisone Acetate 25 Mg Supp.Rect IN 03/23/25 11:59 PRN PRN HEMORRHOIDS Ibuprofen 800 mg 02/21/25 12:00 Ibuprofen 400 Mg Tablet PO 03/23/25 11:59 Q6H PRN PRN MODERATE PAIN Polysaccharide Iron Complex 150 mg 02/21/25 12:00 02/22/25 10:40 Iron Polysaccharides Complex 150 Mg Capsule PO 03/23/25 11:59 150 mg DAILY MERVAT Administration Simethicone 80 mg 02/21/25 12:00 Simethicone 80 Mg Tab.Chew PO 03/23/25 11:59 QID PRN PRN INDIGESTION Witch Josie 1 pad 02/21/25 12:00 Witch Josie 1 Pad Med..Pad TP 03/23/25 11:59 PRN PRN ITCHING Zolpidem Tartrate 10 mg 02/21/25 12:00 Zolpidem Tartrate 10 Mg Tablet PO 03/23/25 11:59 HS PRN PRN INSOMNIA Discontinued Medications Generic Name Dose Route Start Last Admin Trade Name Freq PRN Reason Stop Dose Admin Bupivacaine HCl Confirm 02/21/25 14:55 Bupivacaine Hcl/Pf 150 Mg/30 Ml Vial Administered 02/21/25 14:56 Dose 150 mg .ROUTE .STK-MED ONE Bupivacaine Liposome Confirm 02/21/25 14:55 Bupivacaine Liposome/Pf 133 Mg/10 Ml Administered 02/21/25 14:56 Dose 266 mg IJ .STK-MED ONE Butorphanol Tartrate 1 mg 02/20/25 07:48 Butorphanol Tartrate 2 Mg/Ml Vial IV 03/22/25 07:47 Q4H PRN PRN MODERATE PAIN Butorphanol Tartrate 1 - 2 mg 02/20/25 21:56 Butorphanol Tartrate 2 Mg/Ml Vial IV 03/22/25 21:54 Q3H PRN PRN MODERATE PAIN Diphtheria/Tetanus/Acell Pertussis 0.5 ml 02/22/25 09:00 Tdap --Diph,Pertuss(Acell),Tet Vac/Pf 0.5 Ml Vial IM 02/22/25 09:01 .ONCE ONE Enoxaparin Sodium 40 mg 02/22/25 10:00 02/22/25 10:40 Enoxaparin Sodium 40 Mg/0.4 Ml Syringe SQ 02/22/25 10:01 40 mg 1XONLY ONE Administration Ephedrine Sulfate 10 mg 02/21/25 12:14 Ephedrine Sulfate 50 Mg/Ml IV 03/23/25 12:13 PRN PRN SBP<100 Ephedrine Sulfate Confirm 02/21/25 15:41 Ephedrine Sulfate 50 Mg/Ml Administered 02/21/25 15:42 Dose 50 mg .ROUTE .STK-MED ONE Fentanyl Citrate Confirm 02/21/25 15:02 Fentanyl Citrate 100 Mcg/2 Ml* Vial Administered 02/21/25 15:03 Dose 100 mcg .ROUTE .STK-MED ONE Oxytocin/Lactated Ringer's 30 units in 500 mls @ 5 mls/hr 02/20/25 08:00 Pitocin 30 Units/ Lr 500 Ml IV 03/22/25 07:59 .Q24H MERVAT Lactated Ringer's 1,000 mls @ 125 mls/hr 02/20/25 08:00 02/21/25 13:42 Lactated Ringers IV 03/22/25 07:59 125 mls/hr .Q8H MERVAT Administration Oxytocin/Lactated Ringer's 30 units in 500 mls @ 0 mls/hr 02/21/25 08:30 01/25 08:18 Pitocin 30 Units/ Lr 500 Ml IV 03/23/25 08:29 2 mls/hr .Q0M MERVAT Administration Protocol Titrate Lactated Ringer's 1,000 mls @ 999 mls/hr 02/21/25 12:14 Lactated Ringers IV 02/21/25 13:14 .Q1H1M ONE FENTANYL/BUPIVACAINE/NS/PF 250 mls @ 0 mls/hr 02/21/25 12:15 02/21/25 12:30 Fentanyl 2 Mcg-Bupiv 0.125%-Ns 250 Ml Epidur EPIDURAL 03/23/25 12:14 10 mls/hr .Q0M MERVAT Administration Protocol Titrate Sodium Chloride Confirm 02/21/25 14:31 Sodium Chloride 0.9% 1000 Ml Administered 02/21/25 14:32 Dose 1,000 mls @ ud .ROUTE .STK-MED ONE Cefazolin Sodium Confirm 02/21/25 14:51 Cefazolin 2 Gm/100 Ml Nacl Administered 02/21/25 14:52 Dose 2 gm in 100 mls @ ud IV .STK-MED ONE Acetaminophen Confirm 02/21/25 14:55 Ofirmev Administered 02/21/25 14:56 Dose 100 mls @ ud IV .STK-MED ONE Lactated Ringer's Confirm 02/21/25 15:00 Lactated Ringers Administered 02/21/25 15:01 Dose 1,000 mls @ ud IV .STK-MED ONE Dextrose/Lactated Ringer's 1,000 mls @ 125 mls/hr 02/21/25 17:30 02/21/25 17:16 Dextrose 5%-Lr Iv Solution 1000 Ml IV 03/23/25 17:29 125 mls/hr .Q8H MERVAT Administration Cefazolin Sodium 2 gm in 100 mls @ 200 mls/hr 02/21/25 23:00 02/22/25 06:54 Cefazolin 2 Gm/100 Ml Nacl IV 03/23/25 22:59 200 mls/hr Q8HT MERVAT Administration Cefazolin Sodium Confirm 02/22/25 06:53 Cefazolin 2 Gm/100 Ml Nacl Administered 02/22/25 06:54 Dose 2 gm in 100 mls @ ud IV .STK-MED ONE Cefazolin Sodium 2 gm in 100 mls @ 200 mls/hr 02/21/25 15:15 Cefazolin 2 Gm/100 Ml Nacl IV 02/21/25 15:44 ONCALLTOOR MERVAT Sodium Chloride 1,000 mls @ 999 mls/hr 02/21/25 14:45 02/21/25 15:00 Sodium Chloride 0.9% 1000 Ml IV INFUS 02/21/25 15:45 999 mls/hr .Q1H1M MERVAT Administration Cefazolin Sodium 2 gm in 100 mls @ 200 mls/hr 02/21/25 15:00 Cefazolin 2 Gm/100 Ml Nacl IV 02/21/25 15:29 ONCALLTOOR MERVAT Lidocaine/Epinephrine Confirm 02/21/25 15:01 Lidocaine Hcl/Epinephrine 2% 20 Ml Vial Mpf Administered 02/21/25 15:02 Dose 20 ml .ROUTE .STK-MED ONE Misoprostol 25 mcg 02/20/25 08:00 02/21/25 01:30 Misoprostol 25 Mcg ("/4") Tab INTRAVAGIN 03/22/25 07:59 25 mcg Q4H PRN PRN Administration as ordered Misoprostol 20 mcg 02/21/25 05:15 02/21/25 05:25 Misoprostol 100 Mcg Tablet PO 02/21/25 05:16 20 mcg ONCE ONE Administration Morphine Sulfate Confirm 02/21/25 15:28 Morphine Sulfate 5 Mg/10 Ml Pf Ampul Administered 02/21/25 15:29 Dose 5 mg .ROUTE .STK-MED ONE Nalbuphine HCl 5 - 10 mg 02/20/25 07:48 02/21/25 08:43 Nalbuphine Hcl 10 Mg/Ml Ampul IV 03/22/25 07:47 5 mg Q4H PRN PRN Administration PAIN Ondansetron HCl 4 mg 02/20/25 07:48 Ondansetron Hcl 4 Mg/2 Ml Vial IV 03/22/25 07:47 Q4H PRN PRN NAUSEA/VOMITING Oxytocin Confirm 02/21/25 14:54 Oxytocin 10 Units/Ml 10 Units/Ml Vial Administered 02/21/25 14:55 Dose 20 units .ROUTE .STK-MED ONE Phenylephrine HCl Confirm 02/21/25 15:28 Phenylephrine 10 Mg/Ml Vial Administered 02/21/25 15:29 Dose 10 mg .ROUTE .STK-MED ONE Assessment/Plan (1) Preeclampsia Current Visit: Yes Status: Acute Code(s): O14.90 - UNSPECIFIED PRE- ECLAMPSIA, UNSPECIFIED TRIMESTER (2) delivery delivered Current Visit: Yes Status: Acute Code(s): O82 - ENCOUNTER FOR DELIVERY WITHOUT INDICATION (3) Non-reassuring heart rate, delivered, current hospitalization Current Visit: Yes Status: Acute Code(s): O76 - ABNLT IN HEART RATE AND RHYTHM COMP LABOR AND DELIVERY
--- NOTE | 2025-02-23 07:19 | PCM.DS ---
Discharge Summary Date of Admission: 02/21/25 07:09 Admitting Physician: SONDRA WANG DO Consults: Consults on Case 02/22/25 07:54 Navigation ONCE Primary Care Provider: RAFI REEDER NP Allergies Allergies No Known Drug Allergies Allergy (Verified 02/21/25 00:25) Hospital Summary - Hospital Course Hospital Course: pt admitted on february 20 for induction at 37 2/7 wks gestation with hx of preeclampsia with noted elevated bp in office diastolic in the 90's and elevated prot/cr ratio at 0.43 with elevated uric acid to 9.3 pt was started on vaginal cytotec and received 5 doses and one dose of oral cytotec. pt was then started on pitocin and progresed to 6cm and was then noted having repetitive deep variable decelerations not resolved with amnioinfusion. pt then sent to OR for primary csection secondary to nonreasurring heart rate remote from delivery and delivered live baby girl without complication. during postop period pt did well able to ambulate and tolerate diet with stable vitals. pt had stable hgb at 9.6 prior to discharge. incision healing well with no sign of infectin and at this time stable for discharge with fu in 1 wk. pt given percocet for pain management and was advised to fu in office in 1 wk and to call me for any issues that may arise after discharge. - Vitals & Intake/Output Vital Signs: Vital Signs Temperature 98.1 F 02/23/25 06:00 Pulse Rate 82 02/23/25 06:00 Respiratory Rate 16 02/23/25 06:00 Blood Pressure 131/73 02/23/25 06:00 O2 Sat by Pulse Oximetry 99 02/23/25 06:00 Intake & Output: Intake & Output 02/20/25 02/21/25 02/22/25 02/23/25 11:59 11:59 11:59 11:59 Intake Total 200 1100 300 Output Total 1025 Balance 200 1100 -1025 300 Weight 131.995 kg - Lab Result Diagrams: 02/22/25 06:15 02/20/25 08:44 Micro Results-Entire Visit: Microbiology 02/21/25 15:13 Urine Culture - Final Urine, Catheterized NO GROWTH - Procedures and Test Procedures and Tests throughout Hospitalization: Therapy Orders & Screens 02/21/25 15:43 Standby STAT Comment: Diagnosis: IUP Final Diagnosis/Problem List - Final Discharge Diagnosis/Problem (1) Preeclampsia Current Visit: Yes Status: Acute Code(s): O14.90 - UNSPECIFIED PRE- ECLAMPSIA, UNSPECIFIED TRIMESTER (2) delivery delivered Current Visit: Yes Status: Acute Code(s): O82 - ENCOUNTER FOR DELIVERY WITHOUT INDICATION (3) Non-reassuring heart rate, delivered, current hospitalization Current Visit: Yes Status: Acute Code(s): O76 - ABNLT IN HEART RATE AND RHYTHM COMP LABOR AND DELIVERY - Discharge Disposition: Home, Self-Care Condition: Stable Prescriptions: New Oxycodone HCl/Acetaminophen [Percocet 5-325 mg Tablet] 1 each PO Q6H PRN PRN #20 tablet MDD 4 PRN Reason: Moderate To Severe Pain No Action Ferrous Sulfate [Ferosul] 325 mg PO DAILY Pnv 119/Iron Fum/Folic Acid [ 19 Tablet] 1 each PO DAILY Follow up with: RAFI REEDER NP [Primary Care Provider, UNKNOWN] SONDRA WANG DO [ACTIVE STAFF, OBSTETRICS-GYNECOLOGY] - 1 Week Referral Note: should keep incision clean and dry no heavy lifting no driving for 10 days should call me for any issues that may arise
[2025-02-23 09:49] VITALS: BP 132/74; PULSE 98; RESP 20; TEMP 98.3
--- NOTE | 2025-02-23 12:26 | OP ---
SURGERY DATE/TIME: 02/21/2025 [id number] PREOPERATIVE DIAGNOSES: Intrauterine at 37 weeks and 3 days gestation with preeclampsia with nonreassuring heart rate tracing with repetitive deep variable decelerations remote from delivery. POSTOPERATIVE DIAGNOSES: Intrauterine at 37 weeks and 3 days gestation with preeclampsia with nonreassuring heart rate tracing with repetitive deep variable decelerations remote from delivery. PROCEDURE: Primary section with low flap transverse uterine incision, Pfannenstiel skin incision. SURGEON: Chris Varner DO TRACTOR EXPERT: Erin Carter ANESTHESIA: Epidural. ESTIMATED BLOOD LOSS: 870 mL. COMPLICATIONS: None. PROCEDURE AND FINDINGS: The risks, benefits, indications, and alternatives of the procedure were reviewed with the patient prior to the procedure. The patient understood the risks of infection, bleeding, bowel injury, bladder injury, ureteral injury, pelvic infection, and thromboembolic disorder associated with the surgery, and desired to have the surgery as a possible means to alleviate her current medical condition. The patient was admitted to the hospital at 37 weeks and 3 days gestation secondary to preeclampsia with elevated blood pressures noted in the office and elevated [id number] ratio that was noted in the hospital, which was noted to be 0.43. At this point, the patient was induced with vaginal Cytotec and after 5 doses was subsequently started on Pitocin and had her membranes ruptured with subsequent starting up Pitocin. The patient was noted to be approximately 6 cm dilatation with noted repetitive deep variable decelerations with continued decelerations after amnioinfusion. At this point, it was determined to proceed with section secondary for her being remote from delivery. At this point, the patient was taken to the operating room where her epidural anesthesia was found to be adequate. She was then prepared and draped in normal sterile fashion in the dorsal supine position with leftward tilt. A Pfannenstiel skin incision was made with a scalpel and carried through to the underlying layer of the fascia with a Bovie. The fascia was then incised in the midline, and the incision extended laterally with Mehta scissors. The superior aspect of the fascial incision was then grasped with Matt clamps, elevated, and the underlying rectus muscle dissected out bluntly. Attention was then turned to the inferior aspect of this incision which in a similar fashion was grasped, tented up with Matt clamps, and the rectus muscle dissected off bluntly. The rectus muscles were then in the midline. The peritoneum identified, tented up, and entered sharply with Metzenbaum scissors. The peritoneal incision was then extended superiorly and inferiorly with good visualization of the bladder. The bladder blade was then inserted and the vesicouterine peritoneum identified, grasped with pickups, and entered sharply with the Metzenbaum scissors. This incision was then extended laterally and bladder flap created digitally. The bladder blade was then reinserted and the lower uterine segment incised in a transverse fashion with the scalpel. The uterine incision was then extended laterally digitally. The bladder blade was then removed and the infant's head was delivered atraumatically. The nose and mouth were suctioned with the bulb suction and the cord clamped and cut. The infant was then handed off to waiting nurses. The placenta was then removed manually. The uterus exteriorized and cleared of all clots and debris. The uterine incision was repaired with 1-0 chromic in a running locked fashion. A second layer of the same suture was used to obtain excellent hemostasis. The uterus was then returned to the abdomen and the gutters were cleared of all clots. At this point, the muscles and peritoneum were closed in an interrupted fashion using 2-0 chromic suture. The fascia was reapproximated with 0 Vicryl in a running fashion. The subcutaneous layer was closed with 3-0 Vicryl suture. The skin was closed with absorbable ashley called Insorb. The patient tolerated the procedure well. Sponge, lap, needle, and instrument counts were correct x2. The patient was then taken to the recovery room in stable condition. The patient delivered a live baby girl at 1517. Apgars 6 at one minute and 8 at five minutes. The weight of the baby was 5 pounds 11 ounces.
[2025-02-23] MEDS: Adacel Vial IM ONE (12:53)
== END 2025-02-23 13:25 | disposition home or self-care (01) | DRG 788 ==
LOC: OB 07:09 → OBSVTOIN 02-21 07:09
PROVIDERS: ADMIT Obstetrics & Gynecology; ATTEND Obstetrics & Gynecology
PROC: 10D00Z1 Extraction of Products of Conception, Low, Open Approach (ICD-10-PCS; principal; 2025-02-21)
DX: O14.94 Unspecified pre-eclampsia, complicating childbirth (principal); O76 Abnormality in fetal heart rate and rhythm complicating labor and delivery; Z3A.37 37 weeks gestation of pregnancy; Z37.0 Single live birth
CPT/HCPCS: 36415; 59514; 62322; 64488; 76937; 80053; 80307; 81001; 82570; 83615; 84156; 84550; 85025; 86592; 86850; 86900; 86901; 87086; 90471; 90715; 94799; 99140; G0378; G0379; J0666; J0690; J1650; J2274; J2300; J2371; J2590; J3010; L0625; A9270-GY